=== PATIENT | female | born 1965 | race Caucasian/White ===

== ENCOUNTER 2016-12-05 12:39 | Day surgery (SDC) | payer BC ==
[2016-12-04 18:02] VITALS: BMI 37.1
[2016-12-05] MEDS ORDERED: LIDOCAINE HCL 1%, 10 MG/ML (20ML VIAL) ONE (13:05)
[2016-12-05] MEDS ORDERED: LIDOCAINE HCL 1%, 10 MG/ML (20ML VIAL) IJ ONE ×2 (14:36→14:39)
[2016-12-05] MEDS ORDERED: PROPOFOL 20 ML ONE (14:45)
[2016-12-05] MEDS ORDERED: DEXAMETHASONE SOD PHOSPHATE 4 MG/1 ML VIAL ONE (14:59)
[2016-12-05] MEDS ORDERED: BACITRACIN 30 GM TUBE TOPICAL OINTMENT ONE (15:02)
[2016-12-05] MEDS ORDERED: KETOROLAC TROMETHAMINE 30 MG/1 ML VIAL ONE (15:11)
[2016-12-05] MEDS ORDERED: PATIENT'S OWN MEDICATION (NON-FORMULARY) (Potassium Chloride [Klor-Con] 20 MEQ) PO PRN (15:15)
[2016-12-05] MEDS ORDERED: ONDANSETRON 4 MG/2 ML VIAL IVPUSH PRN (15:23)
[2016-12-05] MEDS ORDERED: ACETAMINOPHEN 1000 MG/100 ML VIAL (NON FORMULARY) IVPB ONE (15:23)
[2016-12-05] MEDS ORDERED: oxyCODONE HCL 5 MG TABLET PO PRN (15:23)
[2016-12-05] MEDS ORDERED: LACTATED RINGERS SOLUTION 1,000 ML IV SCH (15:30)
[2016-12-05 16:51] VITALS: TEMP 97.5
[2016-12-05] MEDS ORDERED: oxyCODONE HCL 5 MG TABLET ONE (17:21)
[2016-12-05 17:30] VITALS: PULSE 100
[2016-12-05 18:23] VITALS: BP 133/78
[2016-12-05] MEDS ORDERED: AMOX TR/POT CLAV 875MG/125MG TABLETS (FP) PO SCH (22:00)
--- NOTE | 2016-12-06 08:53 | OP ---
DATE OF OPERATION: 12/05/2016 PREOPERATIVE DIAGNOSIS: Right breast mass, right breast abscess. POSTOPERATIVE DIAGNOSIS: Right breast mass, right breast abscess. PROCEDURE: Excision of right breast mass with abscess drainage. SURGEON: Miley Lewis MD ANESTHESIA: Local IV sedation. ESTIMATED BLOOD LOSS: Minimal. COMPLICATIONS: None. This is a sterile procedure. INDICATIONS: Patient presented with a palpable mass in the inner right breast that over the past 2 months has gotten infected several times despite Augmentin. She, again, presented with a palpable, tender mass yesterday, and I started her also on Bactrim; however, this is not improved. Therefore, the plan is to do an incision and drainage and excision of this mass. The procedure was discussed and all of the questions answered. PROCEDURE IN DETAIL: The patient was brought to [facility] and taken into the operating room. After IV sedation and IV antibiotics, the right breast was prepped in the usual sterile fashion. The area of the inner right breast was anesthetized with 1% lidocaine without epinephrine. Elliptical incisions were made in the right 3 o'clock location radially up to the base of the nipple, and the entire mass was incised en bloc and sent as a right breast excision. Upon entering this, there was a significant amount of pus that was retrieved, approximately 5 mL. A culture was performed and sent for microbiology. There was still some induration and firmness along the inferior aspect; therefore, I took an additional tissue in the retroareolar 4 o'clock to 5 o'clock location, and this was also sent together with the right breast mass. Hemostasis was assured with electrocautery. Skin was approximated with interrupted 2-0 Vicryl. A India drain was then placed into this cavity and coming out from the medial aspect of the incision. The skin was approximated with interrupted 3-0 Vicryl and then interrupted 4-0 nylon. Bacitracin was applied to the wound. Again, the India was left in place to keep the skin open so as not to gather reinfection. A gauze was applied over the wound to collect any drainage. She tolerated the procedure well and was taken to recovery in good condition. Haim [id number]
[2016-12-06] MEDS ORDERED: MULTIVITAMINS (DAILY MVI) TABLET (FP) PO SCH (10:00)
[2016-12-06] MEDS ORDERED: MULTIVIT WITH IRON MINERALS PO SCH (10:00)
--- NOTE | 2016-12-10 15:20 | PATH ---
Surgical Pathology Report Patient Name: MARS TOMLIN [facility]. Rec. #: [id number] /Age/Gender: 1965 (Age: 51) / F Account: [id number] Location: [facility] SURGICAL Taken: 12/05/2016 Received: 12/08/2016 Reported: 12/10/2016 Physicians: Miley Lewis M.D. Specimen(s) Received RIGHT BREAST MASS Clinical History Right breast mass Final Diagnosis BREAST, RIGHT, MASS, EXCISION: SKIN SHOWING ABSCESS. BENIGN BREAST TISSUE SHOWING ACUTE AND CHRONIC MASTITIS AND PROLIFERATIVE FIBROCYSTIC CHANGES. Electronically Signed Karoline Bailon M.D. Gross Description Received in formalin, labeled "right breast mass," are 2 guaman-yellow, irregular, unoriented portions of fibroadipose tissue measuring 2.8 x 2.4 x 1.5 cm and 4.5 x 3.1 x 3.0 cm. The larger portion displays a 4.0 x 1.3 cm guaman, elliptical, unremarkable portion of skin. The smaller portion is inked green the larger portion is inked red. Sectioning reveals a possible some epidermal lesion in the larger specimen, possibly consistent with an abscess. The remaining breast parenchyma displays foci of firm fibrous tissue.. E Business Specialist sections are submitted in 12 cassettes as follows: [id number] and sequentially submitted smaller portion of tissue; [id number] sequentially submitted larger portion of tissue. Total formalin fixation time: Approximately 72 hours /12/08/201612/08/2016
== END 2016-12-05 18:23 | disposition home or self-care (01) ==
LOC: JOR 12:39 → JASU-SURG 12:39
PROVIDERS: ATTEND Surgery
PROC: 0HBT0ZX Excision of Right Breast, Open Approach, Diagnostic (ICD-10-PCS; principal; 2016-12-05 14:00)
DX: N61.1 Abscess of the breast and nipple (principal); D24.1 Benign neoplasm of right breast
CPT/HCPCS: 87070; 87205; 88307-TC; 94760

== ENCOUNTER 2017-02-28 12:39 | Inpatient (IN) | payer BC ==
--- NOTE | 2017-02-28 12:55 | PDOC ---
[id number] No Limitations - History of Present Illness Initial Comments: 02/28/17 12:56 The patient is a 51-year-old woman, accompanied by her , with a significant past medical history of anemia who was advised to present to the emergency department by her PMD, Dr. Crystal Meyer for further evaluation of generalized weakness. Patient states that she underwent outpatient labs, approximately 2 weeks ago, which were indicative for anemia. She was informed that her hemoglobin was low and was advised to present to the hospital for a blood transfusion. She admits that she did not want a blood transfusion and wanted to be on iron supplements. She states that for the past 2 weeks, her weakness have progressively worsened to the point where she is unable to sleep. She also reports symptoms of urinary frequency for the past 2 weeks. She had two shots of Tequila this morning. She called Dr. Meyer this morning, who advised her to present to the ER. No fever, chills. No chest pain, lightheadedness, dizziness, headaches, palpitations. No cough, shortness of breath. No abdominal pain, nausea, vomiting, diarrhea, constipation No dysuria, flank pain, urinary hesitancy, vaginal discharge. Allergies: Bupropion Past Surgical History: Cholecystectomy. Gastric bypass. Lumpectomy (12/03/2016; due to infection; no malignancy, as per patient) Social History: Current everyday cigarette smoker (approximately 1 pack/day). Everyday ETOH use (Drink of choice is Tequila; patient states she has not drank in one month; admits to drinking two shots of Tequila this morning). No recreational drug use. Primary Care Physician: Dr. Crystal Meyer <Jennifer Conteh - Last Filed: 02/28/17 14:43> <Laverne Nicholas - Last Filed: 02/28/17 16:18> - General Chief Complaint: Weakness Stated Complaint: PCP SENT/WEAKENESS Time Seen by Provider: 02/28/17 12:55 Past History <Jennifer Conteh - Last Filed: 02/28/17 14:43> - Past Medical History Anemia: (LOW BLOOD IRON.) - Surgical History Abdominal Surgery: Yes (GASTRIC BYPASS) Cholecystectomy: Yes - Psycho/Social/Smoking Cessation Hx Anxiety: No Suicidal Ideation: No Smoking History: Current every day smoker Have you smoked in the past 12 months: Yes Number of Cigarettes Smoked Daily: 20 Information on smoking cessation initiated: No 'Breaking Loose' booklet given: 12/05/16 Hx Alcohol Use: Yes (TEQUILA) Drug/Substance Use Hx: No Substance Use Type: Alcohol <Laverne Nicholas - Last Filed: 02/28/17 16:18> - Past Medical History Allergies/Adverse Reactions: Allergies Allergy/AdvReac Type Severity Reaction Status Date / Time bupropion HCl Allergy Intermediate Rash Verified 02/28/17 12:45 [From Wellbutrin] Home Medications: Ambulatory Orders Multivit with Iron-Minerals [Compete] 1 each PO DAILY 12/04/16 Pantoprazole Sodium 40 mg PO DAILY 02/28/17 Trazodone HCl [Desyrel -] 150 mg PO HS 02/28/17 Zolpidem Tartrate [Ambien] 10 mg PO HS 02/28/17 Review of Systems - Review of Systems Able to Perform ROS?: Yes Comments:: 02/28/17 12:56 Constitutional - +Weakness. Pt denies Fever, Chills, HEENT: denies vision changes, sore throat Respiratory: Denies cough, sob, hemoptysis Cardiac: denies chest pain, palpitations, light headedness, leg swelling Abd/GI: denies abd pain, nausea, vomiting, blood per rectum, melena, diarrhea : +Urinary frequency. denies dysuria, discharge Musculoskeletal - denies back pain, joint swelling skin - denies bruising, erythema, rash neurological: +Weakness. Denies headache, numbness, focal weakness, tingling, ataxia. hematologic: +History of anemia. denies easy bruising, easy bleeding <Jennifer Conteh - Last Filed: 02/28/17 14:43> *Physical Exam - Vital Signs Last Vital Signs Temp Pulse Resp BP Pulse Ox 98.3 F 108 H 18 106/63 98 02/28/17 12:42 02/28/17 12:42 02/28/17 12:42 02/28/17 12:42 02/28/17 12:42 - Physical Exam Comments: 02/28/17 12:56 GENERAL: The patient is awake, alert, and fully oriented, Nontoxic - in no acute distress. HEAD: Normocephalic, atraumatic. EYES: extraocular movements intact, sclera anicteric, conjunctiva clear. ENT: Normal voice, moist mucous membranes. NECK: Normal range of motion, supple without lymphadenopathy, JVD, or masses. LUNGS: Breath sounds equal, clear to auscultation bilaterally. No wheezes, no crackles, no rales. HEART: Regular rate and rhythm, normal S1 and S2 without murmur, rub or gallop. ABDOMEN: Soft, nontender, normoactive bowel sounds. No guarding, no rebound. No masses. EXTREMITIES: Normal range of motion, no edema. No clubbing or cyanosis. No cords , erythema, or tenderness. NEUROLOGICAL: Fully Oriented, Alert, Normal Mood/Affect, Motor Strength 5/5. No facial assymetry, Normal speech SKIN: Warm, Dry, normal turgor, no rashes or lesions noted. <Jennifer Conteh - Last Filed: 02/28/17 14:43> - Vital Signs Last Vital Signs Temp Pulse Resp BP Pulse Ox 98.3 F 108 H 18 106/63 98 02/28/17 12:42 02/28/17 12:42 02/28/17 12:42 02/28/17 12:42 02/28/17 12:42 <Laverne Nicholas - Last Filed: 02/28/17 16:18> Heart Score/ECG Review #1 02/28/17 14:43 Reviewed and interpreted by Dr. Laverne Nicholas IMPRESSION: Sinus tachycardia with a rate of 105 bpm. Normal axis. No acute ST abnormalities. No prior EKG for comparison. <Jennifer Conteh - Last Filed: 02/28/17 14:43> ED Treatment Course - LABORATORY CBC & Chemistry Diagram: 02/28/17 13:30 02/28/17 13:30 <Jennifer Conteh - Last Filed: 02/28/17 14:43> - LABORATORY CBC & Chemistry Diagram: 02/28/17 13:30 02/28/17 13:30 <Laverne Nicholas - Last Filed: 02/28/17 16:18> Medical Decision Making - Medical Decision Making 02/28/17 14:[address] Crystal Meyer. <Jennifer Conteh - Last Filed: 02/28/17 14:43> - Medical Decision Making 02/28/17 13:41 I, Dr. Laverne Nicholas, attest that the scribes documentation that appears above has been prepared under my direction and personally reviewed by me. I confirmed that the note above accurately reflects all work, treatment, procedures, and medical decision-making performed by me. Pt hgb today was 6.4, case discussed with Dr. Cotter who agrees with admission for blood transfusion but requestes ct Of abdomen with contrast to evaluate the anemia. Pt agrees to admission , two units of blood ordered, and admission enetered in the computer. 02/28/17 14:44 02/28/17 16:11 <Laverne Nicholas - Last Filed: 02/28/17 16:18> *DC/Admit/Observation/Transfer - Attestations Scribe Attestion: 02/28/17 12:56 Documentation prepared by Jennifer Conteh, acting as medical associate for Laverne Nicholas DO. <Jennifer Conteh - Last Filed: 02/28/17 14:43> - Discharge Dispostion Admit: Yes <Laverne Nicholas - Last Filed: 02/28/17 16:18> Diagnosis at time of Disposition: Anemia - Discharge Dispostion Condition at time of disposition: Stable
[2017-02-28 13:35] LABS: MCH 28.3 pg (25.7-33.7); MCHC 31.5 g/dl (32.0-36.0); MEAN PLT VOLUME 7.5 fl (7.5-11.1); PLATELET COUNT 412 K/MM3 (134-434); RDW 24.7 % (11.6-15.6); WHITE BLOOD COUNT 7.7 K/mm3 (4.0-10.0)
[2017-02-28 13:59] LABS: ALBUMIN 2.2 g/dl (3.4-5.0); ANION GAP 9 (8-16); BILIRUBIN,TOTAL 0.3 mg/dL (0.2-1.0); CALCIUM 7.9 mg/dL (8.5-10.1); CO2 23 mmol/L (21-32); COCKROFT - GAULT 204.935; CREATININE 0.5 mg/dL (0.55-1.02); GLUCOSE,RANDOM 103 mg/dL (74-106); SGOT/AST 90 U/L (15-37); SGPT/ALT 47 U/L (12-78)
[2017-02-28 14:00] LABS: ALK PHOS 216 U/L (45-117); TOT PROT 5.3 g/dl (6.4-8.2)
[2017-02-28 14:05] LABS: ANISOCYTOSIS 3+; HYPOCHROMIA 2+; PLATELET ESTIMATE ADEQUATE (NORMAL); POLYCHROMASIA 1+
[2017-02-28 14:06] LABS: MICROCYTOSIS 1+
[2017-02-28 14:47] LABS: URINE APPEARANCE CLEAR; URINE BILIRUBIN NEGATIVE (NEGATIVE); URINE COLOR STRAW; URINE GLUCOSE (UA) NEGATIVE (NEGATIVE); URINE KETONE NEGATIVE (NEGATIVE); URINE LEUK ESTERASE NEGATIVE (NEGATIVE); URINE NITRITE NEGATIVE (NEGATIVE); URINE PROTEIN NEGATIVE (NEGATIVE); URINE UROBILINOGEN NEGATIVE E.U./dl (0.2-1.0)
[2017-02-28 14:53] LABS: URINE BLOOD 1+ (NEGATIVE)
[2017-02-28 14:54] LABS: URINE WBC <1 /hpf (3-5)
--- NOTE | 2017-02-28 16:42 | HP ---
Admitting History and Physical - Primary Care Physician PCP: Crystal Meyer - Admission Chief Complaint: WEAKNESS/DIZZINESS, ACUTE ANEMIA History of Present Illness: The patient is a 51-year-old woman, accompanied by her , with a significant past medical history of anemia who was advised to present to the emergency department by her PMD, Dr. Crystal Meyer for further evaluation of generalized weakness. Patient states that she underwent outpatient labs, approximately 2 weeks ago, which were indicative for anemia. She was informed that her hemoglobin was low and was advised to present to the hospital for a blood transfusion. She admits that she did not want a blood transfusion and wanted to be on iron supplements. She states that for the past 2 weeks, her weakness have progressively worsened to the point where she is unable to sleep. She also reports symptoms of urinary frequency for the past 2 weeks. She had two shots of Tequila this morning. She called Dr. Meyer this morning, who advised her to present to the ER. No fever, chills. No chest pain, lightheadedness, dizziness, headaches, palpitations. No cough, shortness of breath. No abdominal pain, nausea, vomiting, diarrhea, constipation No dysuria, flank pain, urinary hesitancy, vaginal discharge. History Source: Patient - Past Surgical History Past Surgical History: Yes: Bariatric Surgery - Smoking History Smoking history: Current every day smoker Have you smoked in the past 12 months: Yes Aproximately how many cigarettes per day: 20 - Alcohol/Substance Use Hx Alcohol Use: Yes (TEQUILA) Home Medications - Allergies Allergies/Adverse Reactions: Allergies Allergy/AdvReac Type Severity Reaction Status Date / Time bupropion HCl Allergy Intermediate Rash Verified 02/28/17 12:45 [From Wellbutrin] - Home Medications Home Medications: Ambulatory Orders Multivit with Iron-Minerals [Compete] 1 each PO DAILY 12/04/16 Pantoprazole Sodium 40 mg PO DAILY 02/28/17 Trazodone HCl [Desyrel -] 150 mg PO HS 02/28/17 Zolpidem Tartrate [Ambien] 10 mg PO HS 02/28/17 Review of Systems - Review of Systems Constitutional: reports: Lethargy, Weakness Eyes: reports: No Symptoms HENT: reports: No Symptoms Neck: reports: No Symptoms Cardiovascular: reports: Shortness of Breath Respiratory: reports: Orthopnea Gastrointestinal: reports: No Symptoms Genitourinary: reports: No Symptoms Breasts: reports: No Symptoms Reported Musculoskeletal: reports: Muscle Weakness Integumentary: reports: Rash, Other Neurological: reports: Dizziness, Other Endocrine: reports: No Symptoms Hematology/Lymphatic: reports: No Symptoms Psychiatric: reports: No Symptoms Physical Examination Vital Signs: Vital Signs Temperature 98.3 F 02/28/17 12:42 Pulse Rate 100 H 02/28/17 15:59 Respiratory Rate 20 02/28/17 15:59 Blood Pressure 114/52 02/28/17 15:59 O2 Sat by Pulse Oximetry (%) 97 02/28/17 15:59 Constitutional: Yes: Moderate Distress Eyes: Yes: WNL HENT: Yes: WNL Neck: Yes: WNL Cardiovascular: Yes: WNL Respiratory: Yes: WNL Gastrointestinal: Yes: WNL Renal/: Yes: WNL Musculoskeletal: Yes: Muscle Weakness Extremities: Yes: WNL Edema: Yes Edema: LLE: Trace, RLE: Trace Peripheral Pulses WNL: Yes Integumentary: Yes: Rash Wound/Incision: Yes: Open to air Neurological: Yes: WNL ...Motor Strength: WNL Psychiatric: Yes: WNL Problem List - Problems (1) Anemia Assessment/Plan: SEVERE MAL-ABSORPTION POST GASTRIC BY-PASS SURGERY Code(s): D64.9 - ANEMIA, UNSPECIFIED Qualifiers: Anemia type: other cause (2) Fatigue Code(s): R53.83 - OTHER FATIGUE (3) Weakness generalized Code(s): R53.1 - WEAKNESS (4) Bariatric surgery status Assessment/Plan: S/P [id number] SURGERY FOR WEIGHT LOSS IN PAST NOW WITH MAL-ABSORPTION OF VITAMINS AND MINERALS Code(s): Z98.84 - BARIATRIC SURGERY STATUS Assessment/Plan TRANSFUSE PRBS STAT HEMATOLOGY EVAL GI EVAL CT SCAN R/O ACUTE GI ANOMALIE OBSERVATION STATUS
[2017-02-28] MEDS ORDERED: ACETAMINOPHEN 325 MG TABLET (FP) PO PRN (17:07)
[2017-02-28] MEDS: PANTOPRAZOLE 40 MG TABLET (FP) PO SCH (17:59)
[2017-02-28] MEDS: traZODone HCL 50 MG TABLET (FP) PO SCH ×2 (20:30→21:23)
[2017-02-28] MEDS: ZOLPIDEM TARTRATE 5 MG TABLET PO PRN (21:21)
[2017-03-01 08:52] LABS: MCHC 31.7 g/dl (32.0-36.0); MEAN CELL VOLUME 88.5 fl (80-96); MEAN PLT VOLUME 7.9 fl (7.5-11.1); PLATELET COUNT 368 K/MM3 (134-434); RDW 21.9 % (11.6-15.6); WHITE BLOOD COUNT 8.5 K/mm3 (4.0-10.0)
[2017-03-01 09:49] LABS: ALBUMIN 2.4 g/dl (3.4-5.0); ANION GAP 9 (8-16); CO2 22 mmol/L (21-32); COCKROFT - GAULT 226.4145; CREATININE 0.5 mg/dL (0.55-1.02); GLUCOSE,RANDOM 86 mg/dL (74-106); SGOT/AST 78 U/L (15-37); SGPT/ALT 42 U/L (12-78)
[2017-03-01 09:51] LABS: ALK PHOS 223 U/L (45-117); BILIRUBIN,TOTAL 0.7 mg/dL (0.2-1.0); TOT PROT 5.7 g/dl (6.4-8.2)
[2017-03-01] MEDS: PANTOPRAZOLE 40 MG TABLET (FP) PO SCH (10:12)
[2017-03-01] MEDS: NICOTINE 21 MG/24 HOURS TOPICAL PATCH TD SCH (10:12)
--- NOTE | 2017-03-01 13:25 | CON.GI ---
Consult Consult Specialty:: Gastroenterology ( covering Dr Vinson) Referred by:: Dr Meyer Reason for Consultation:: anemia - History of Present Illness Chief Complaint: Weakness, decreased exercise tolerance History of Present Illness: 51W is admitted for blood transfusion for Hb 6.5. She denies any overt GI bleeding. She reports having a chronic anemia. She is s/p gastric bypass bariatric surgery at [facility] 8 years ago leading to a 100lbs weight loss. She has since regained 70lbs. She had an EGD at [facility] last year which she reports as being unrevealing. She had a colonoscopy in [place] about 8 years ago which she reports as normal. She did have an I&D of a large right breast abscess several weeks ago but had no blood testing at that time. She did have a large breast hematoma following that surgery. She denies acid reflux, dysphagia , abdominal pain or hematochezia or narrowed stool caliber. Her stool was guaiac negative in the ER. She denies taking NSAIDs. She has an upper extremity pruritus and denies a generalized form. She denies any h/o liver disease but drinks tequila and beer on weekends. Denies IVDA and previous transfusions. - History Source History Provided By: Patient Limitations to Obtaining History: No Limitations - Past Medical History Pulmonary: Yes: COPD (chronic smoker's cough and exertional dyspnea) Gastrointestinal: Yes: Other (Gastric bypass 8 years ago at [facility]) Hepatobiliary: Yes: Cholelithiasis (s/p lap choly), Other (has elevated transaminases) ...: No Heme/Onc: Yes: Anemia Additional Medical History: upper extremity pruritic eczema - Past Surgical History Past Surgical History: Yes: Bariatric Surgery (gastric bypass 8 years ago with 100 lbs wt loss, had regained 70lbs), Breast Biopsy (breast abscess drainage ), Cholecystectomy (laparoscopic), Colonoscopy, Hernia Repair (incisional hernia repair epigastrium), Tubal Ligation, Upper Endoscopy - Alcohol/Substance Use Hx Alcohol Use: Yes (TEQUILA) History of Substance Use: reports: None - Smoking History Smoking history: Current every day smoker Have you smoked in the past 12 months: Yes Aproximately how many cigarettes per day: 20 - Social History Usual Living Arrangement: With Spouse ADL: Independent 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 Place of : [facility] History of Recent Travel: Yes ( relocated from [place]) Home Medications - Allergies Allergies/Adverse Reactions: Allergies Allergy/AdvReac Type Severity Reaction Status Date / Time bupropion HCl Allergy Intermediate Rash Verified 02/28/17 12:45 [From Wellbutrin] - Home Medications Home Medications: Ambulatory Orders Multivit with Iron-Minerals [Compete] 1 each PO DAILY 12/04/16 Pantoprazole Sodium 40 mg PO DAILY 02/28/17 Trazodone HCl [Desyrel -] 150 mg PO HS 02/28/17 Zolpidem Tartrate [Ambien] 10 mg PO HS 02/28/17 Family Disease History - Family Disease History Family Disease History: CA: Mother (breast cancer survivor), Other: Father ( murdered age 31), Brother (one suicide, another in MVA) Review of Systems - Review of Systems Constitutional: reports: Malaise, Weakness, Other (chronic insomnia ? sleep apnea) Eyes: reports: No Symptoms HENT: reports: No Symptoms Neck: reports: No Symptoms Cardiovascular: reports: Shortness of Breath Respiratory: reports: Exercise Intolerance Gastrointestinal: reports: No Symptoms Breasts: reports: Other (recent abscess drainage) Musculoskeletal: reports: Extremity Pain Integumentary: reports: Pruritis (chromic upper extremity pruitic rash), Other Neurological: reports: No Symptoms Psychiatric: reports: Altered Sleep Pattern (insomnia) Physical Exam-GI Vital Signs: Vital Signs Temperature 98.8 F 03/01/17 05:00 Pulse Rate 100 H 03/01/17 05:00 Respiratory Rate 20 03/01/17 05:00 Blood Pressure 150/90 03/01/17 05:00 O2 Sat by Pulse Oximetry (%) 97 03/01/17 00:36 Current Medications Generic Name Dose Route Start Last Admin Trade Name Freq PRN Reason Stop Dose Admin Acetaminophen 650 mg 02/28/17 17:07 Tylenol - PO Q6H PRN FEVER OR PAIN Nicotine 21 mg 03/01/17 10:00 03/01/17 10:12 Nicoderm Patch - TD 21 mg DAILY DURGA Administration Pantoprazole Sodium 40 mg 02/28/17 18:00 03/01/17 10:12 Protonix - PO 40 mg DAILY DURGA Administration Trazodone HCl 150 mg 02/28/17 22:00 02/28/17 21:23 Desyrel - PO Not Given HS DURGA Zolpidem Tartrate 10 mg 02/28/17 17:07 02/28/17 21:21 Ambien - PO 10 mg HS PRN Administration INSOMNIA CBC,CMP WBC 8.5 K/mm3 (4.0-10.0) 03/01/17 07:45 RBC 3.19 M/mm3 (3.60-5.2) L D 03/01/17 07:45 Hgb 8.9 GM/dL (10.7-15.3) L D 03/01/17 07:45 Hct 28.2 % (32.4-45.2) L D 03/01/17 07:45 MCV 88.5 fl (80-96) 03/01/17 07:45 MCHC 31.7 g/dl (32.0-36.0) L 03/01/17 07:45 RDW 21.9 % (11.6-15.6) H D 03/01/17 07:45 Plt Count 368 K/MM3 (134-434) 03/01/17 07:45 MPV 7.9 fl (7.5-11.1) 03/01/17 07:45 Neutrophils % 55.0 % (42.8-82.8) 02/28/17 13:30 Lymphocytes % 34.0 % (8-40) 02/28/17 13:30 Monocytes % 10.0 % (3.8-10.2) 02/28/17 13:30 Band Neutrophils 1.0 % (0-10) 02/28/17 13:30 Platelet Estimate Adequate (NORMAL) 02/28/17 13:30 Platelet Comment No clumping noted 02/28/17 13:30 Polychromasia 1+ 02/28/17 13:30 Hypochromic-Microcytic 2+ 02/28/17 13:30 Anisocytosis 3+ 02/28/17 13:30 Microcytosis 1+ 02/28/17 13:30 Sodium 141 mmol/L (136-145) 03/01/17 07:45 Potassium 4.4 mmol/L (3.5-5.1) 03/01/17 07:45 Chloride 110 mmol/L (98-107) H 03/01/17 07:45 Carbon Dioxide 22 mmol/L (21-32) 03/01/17 07:45 Anion Gap 9 (8-16) 03/01/17 07:45 BUN 4 mg/dL (7-18) L 03/01/17 07:45 Creatinine 0.5 mg/dL (0.55-1.02) L 03/01/17 07:45 Creat Clearance w eGFR > 60 (>60) 03/01/17 07:45 Random Glucose 86 mg/dL (74-106) 03/01/17 07:45 Calcium 8.0 mg/dL (8.5-10.1) L 03/01/17 07:45 Total Bilirubin 0.7 mg/dL (0.2-1.0) D 03/01/17 07:45 AST 78 U/L (15-37) H 03/01/17 07:45 ALT 42 U/L (12-78) 03/01/17 07:45 Alkaline Phosphatase 223 U/L (45-117) H 03/01/17 07:45 Total Protein 5.7 g/dl (6.4-8.2) L 03/01/17 07:45 Albumin 2.4 g/dl (3.4-5.0) L 03/01/17 07:45 Vitamin B12 648 pg/ml (180-914) 03/01/17 07:45 Serum Folate 15 ng/ml (3.1-17.5) 03/01/17 07:45 Constitutional: Yes: Anxious Eyes: Yes: Conjunctiva Clear HENT: Yes: Normocephalic Neck: Yes: Supple Cardiovascular: Yes: Regular Rate and Rhythm Respiratory: Yes: Rhonchi (fine and scattered) Gastrointestinal Inspection: Yes: Distention (obesity), Scars (healed laparoscopic incisions) ...Auscultate: Yes: Normoactive Bowel Sounds ...Palpate: Yes: Soft, Other (nontender) ...Rectal Exam: Yes: Deferred (patient declines citing this was done in the ER) Breast(s): Yes: Right (incision healed, no drainage or bleeding, no residual hematoma) Extremities: Yes: Other (upper arm macerated lesions) Edema: No Labs: CBC, BMP 03/01/17 07:45 03/01/17 07:45 Imaging - Results Cat Scan: Image Reviewed (liver appears fatty, no collections or ascites, await official reading) Problem List - Problems (1) Hepatitis Code(s): K75.9 - INFLAMMATORY LIVER DISEASE, UNSPECIFIED (2) Obesity Code(s): E66.9 - OBESITY, UNSPECIFIED Qualifiers: Obesity type: drug-induced Obesity severity: morbid Qualified Code(s): 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 Given her smoking and alcohol usage I have advised an EGD to exclude an anastomotic ulcer and portal gastropathy. I have discussed EGD in detail and informed Gina of the potential for such complications as perforation and hemorrhage. She has granted an informed consent. Will keep NPO on the chance that Dr Vinson may be able to do it tomorrow. I have explained that her LFTs are elevated in a pattern more suggestive of alcohol injury than DHILLON but that I suspect both are in play. I have advised abstension from alcohol and a better diet and aerobic exercise to induce weight loss. Will order Fibrosure. Will need an mitochondrial antibody as an outpatient as this is not accessible today. Her pruritis could reflect PBC.
[2017-03-01] MEDS ORDERED: OXYCODONE/APAP 5/325MG COMBO TABLET PO PRN (18:22)
--- NOTE | 2017-03-01 18:28 | PN ---
Progress Note, Physician History of Present Illness: no complaints - Current Medication List Current Medications: Active Medications Acetaminophen (Tylenol -) 650 mg PO Q6H PRN PRN Reason: FEVER OR PAIN Acetaminophen (Tylenol -) 325 mg PO Q4H PRN PRN Reason: PAIN LEVEL 6-10 Stop: 03/04/17 18:23 Nicotine (Nicoderm Patch -) 21 mg TD DAILY [facility] Last Admin: 03/01/17 10:12 Dose: 21 mg Oxycodone HCl (Roxicodone -) 5 mg PO Q4H PRN PRN Reason: PAIN LEVEL 6-10 Pantoprazole Sodium (Protonix -) 40 mg PO DAILY [facility] Last Admin: 03/01/17 10:12 Dose: 40 mg Trazodone HCl (Desyrel -) 150 mg PO HS [facility] Last Admin: 02/28/17 21:23 Dose: Not Given Zolpidem Tartrate (Ambien -) 10 mg PO HS PRN PRN Reason: INSOMNIA Last Admin: 02/28/17 21:21 Dose: 10 mg - Objective Vital Signs: Vital Signs Temperature 98.1 F 03/01/17 14:02 Pulse Rate 100 H 03/01/17 14:02 Respiratory Rate 20 03/01/17 08:00 Blood Pressure 125/61 03/01/17 14:02 O2 Sat by Pulse Oximetry (%) 97 03/01/17 08:00 Constitutional: Yes: No Distress HENT: Yes: Atraumatic Neck: Yes: Supple Cardiovascular: Yes: Regular Rate and Rhythm Respiratory: Yes: CTA Bilaterally Gastrointestinal: Yes: Normal Bowel Sounds Breast(s): Yes: Other (r breast healed) Extremities: Yes: WNL Neurological: Yes: Alert, Oriented Labs: CBC, BMP 03/01/17 07:45 03/01/17 07:45 Problem List - Problems (1) Anemia Assessment/Plan: s/p 2 u prbc h/h improved gi did evaluation check stool for occult blood Code(s): D64.9 - ANEMIA, UNSPECIFIED Qualifiers: Anemia type: other cause (2) Bariatric surgery status Code(s): Z98.84 - BARIATRIC SURGERY STATUS (3) Breast abscess of female Code(s): N61.1 - ABSCESS OF THE BREAST AND NIPPLE (4) Weakness generalized Code(s): R53.1 - WEAKNESS
[2017-03-01] MEDS: ACETAMINOPHEN 325 MG TABLET (FP) PO PRN (18:43)
[2017-03-01] MEDS: oxyCODONE HCL 5 MG TABLET PO PRN ×2 (18:44→22:36)
[2017-03-01] MEDS: ZOLPIDEM TARTRATE 5 MG TABLET PO PRN (21:58)
[2017-03-01] MEDS: traZODone HCL 50 MG TABLET (FP) PO SCH (21:58)
--- NOTE | 2017-03-02 00:10 | EKG ---
Test Reason : Blood Pressure : / mmHG Vent. Rate : 105 BPM Atrial Rate : 105 BPM P-R Int : 144 ms QRS Dur : 074 ms QT Int : 356 ms P-R-T Axes : 038 032 041 degrees QTc Int : 470 ms SINUS TACHYCARDIA LOW VOLTAGE QRS BORDERLINE ECG NO PREVIOUS ECGS AVAILABLE Confirmed by MERI JOSEPH MD ([id number]) on 03/02/2017 12:09:48 AM Referred By: Confirmed By:MERI JOSEPH MD
[2017-03-02 09:22] LABS: ALBUMIN 2.5 g/dl (3.4-5.0); BILIRUBIN,DIRECT 0.4 mg/dL (0.0-0.2)
[2017-03-02 09:25] LABS: BILIRUBIN,TOTAL 0.7 mg/dL (0.2-1.0); FERRITIN 19.996 ng/ml (6.9-282.5); TOT PROT 5.9 g/dl (6.4-8.2)
[2017-03-02] MEDS: NICOTINE 21 MG/24 HOURS TOPICAL PATCH TD SCH (10:06)
[2017-03-02] MEDS: PANTOPRAZOLE 40 MG TABLET (FP) PO SCH (10:11)
[2017-03-02] MEDS ORDERED: LORAZEPAM CARPU-JECT 2 MG/ML DISP.SYRIN IM ONE (10:45)
[2017-03-02] MEDS ORDERED: PROPOFOL 20 ML ONE ×2 (11:08)
[2017-03-02] MEDS ORDERED: LIDOCAINE HCL 2% (20ML MULTI-DOSE VIAL) NR ONE (11:08)
[2017-03-02] MEDS: oxyCODONE HCL 5 MG TABLET PO PRN ×2 (14:26→18:43)
[2017-03-02] MEDS: ACETAMINOPHEN 325 MG TABLET (FP) PO PRN ×2 (14:27→18:44)
--- NOTE | 2017-03-02 19:11 | PN ---
Progress Note, Physician Chief Complaint: awake s/p egd results reviewed with GI - Current Medication List Current Medications: Active Medications Acetaminophen (Tylenol -) 650 mg PO Q6H PRN PRN Reason: FEVER OR PAIN Acetaminophen (Tylenol -) 325 mg PO Q4H PRN PRN Reason: PAIN LEVEL 6-10 Stop: 03/04/17 18:23 Last Admin: 03/02/17 18:44 Dose: 325 mg Nicotine (Nicoderm Patch -) 21 mg TD DAILY [facility] Last Admin: 03/02/17 10:06 Dose: 21 mg Oxycodone HCl (Roxicodone -) 5 mg PO Q4H PRN PRN Reason: PAIN LEVEL 6-10 Last Admin: 03/02/17 18:43 Dose: 5 mg Pantoprazole Sodium (Protonix -) 40 mg PO DAILY [facility] Last Admin: 03/02/17 10:11 Dose: Not Given Trazodone HCl (Desyrel -) 150 mg PO HS [facility] Last Admin: 03/01/17 21:58 Dose: 150 mg Zolpidem Tartrate (Ambien -) 10 mg PO HS PRN PRN Reason: INSOMNIA Last Admin: 03/01/17 21:58 Dose: 10 mg - Objective Vital Signs: Vital Signs Temperature 98.2 F 03/02/17 13:42 Pulse Rate 97 H 03/02/17 13:42 Respiratory Rate 22 03/02/17 13:42 Blood Pressure 144/88 03/02/17 12:35 O2 Sat by Pulse Oximetry (%) 97 03/02/17 13:00 Constitutional: Yes: Mild Distress Eyes: Yes: WNL HENT: Yes: WNL Neck: Yes: WNL Cardiovascular: Yes: WNL Respiratory: Yes: WNL Gastrointestinal: Yes: WNL Genitourinary: Yes: WNL Musculoskeletal: Yes: WNL Extremities: Yes: WNL Edema: No Peripheral Pulses WNL: Yes Integumentary: Yes: WNL Wound/Incision: Yes: Clean/Dry Neurological: Yes: WNL ...Motor Strength: WNL Psychiatric: Yes: WNL Problem List - Problems (1) Anemia Code(s): D64.9 - ANEMIA, UNSPECIFIED Qualifiers: Anemia type: other cause (2) Fatigue Code(s): R53.83 - OTHER FATIGUE (3) Weakness generalized Code(s): R53.1 - WEAKNESS (4) Bariatric surgery status Code(s): Z98.84 - BARIATRIC SURGERY STATUS (5) Acute gastric ulcer with bleeding Code(s): K25.0 - ACUTE GASTRIC ULCER WITH HEMORRHAGE Assessment/Plan egd reviewed multiple ulcers and avm corterized by dr carver check labs in am f/u biopsy outpatient repeat egd 1 month colonoscopy outpatient abstain from etoh use iron supp 325 bid
[2017-03-02] MEDS: ZOLPIDEM TARTRATE 5 MG TABLET PO PRN (21:52)
[2017-03-02] MEDS: traZODone HCL 50 MG TABLET (FP) PO SCH (21:52)
[2017-03-03] MEDS: ACETAMINOPHEN 325 MG TABLET (FP) PO PRN ×5 (03:05→19:37)
[2017-03-03] MEDS: oxyCODONE HCL 5 MG TABLET PO PRN ×5 (03:06→19:37)
[2017-03-03 07:31] LABS: MCH 28.5 pg (25.7-33.7); MCHC 31.9 g/dl (32.0-36.0); MEAN CELL VOLUME 89.4 fl (80-96); MEAN PLT VOLUME 8.1 fl (7.5-11.1); PLATELET COUNT 261 K/MM3 (134-434); RDW 21.8 % (11.6-15.6); WHITE BLOOD COUNT 7.3 K/mm3 (4.0-10.0)
[2017-03-03 08:08] LABS: ALBUMIN 2.2 g/dl (3.4-5.0); ALK PHOS 180 U/L (45-117); ANION GAP 9 (8-16); BILIRUBIN,TOTAL 0.4 mg/dL (0.2-1.0); CALCIUM 8.1 mg/dL (8.5-10.1); CO2 24 mmol/L (21-32); COCKROFT - GAULT 226.4145; CREATININE 0.5 mg/dL (0.55-1.02); GLUCOSE,RANDOM 94 mg/dL (74-106); SGOT/AST 39 U/L (15-37); SGPT/ALT 27 U/L (12-78); TOT PROT 5.1 g/dl (6.4-8.2)
[2017-03-03] MEDS: NICOTINE 21 MG/24 HOURS TOPICAL PATCH TD SCH (09:34)
[2017-03-03] MEDS: PANTOPRAZOLE 40 MG TABLET (FP) PO SCH (09:34)
--- NOTE | 2017-03-03 12:12 | PATH ---
Surgical Pathology Report Patient Name: MARS TOMLIN Med. Rec. #: [id number] /Age/Gender: 1965 (Age: 51) / F Account: [id number] Location: [address] [place] [address]/[facility] Taken: 03/02/2017 Received: 03/02/2017 Reported: 03/03/2017 Physicians: Haim Chávez M.D. 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 IMMUNOSTAIN FOR H. PYLORI IS NEGATIVE. Electronically Signed Balta Velásquez M.D. Gross Description Received in formalin, labeled "biopsy gastric pouch" is a guaman, irregular portion of soft tissue measuring 0.4 cm. in greatest dimension. The specimen is submitted in toto in one cassette. /03/02/201703/02/2017
--- NOTE | 2017-03-03 18:31 | DS ---
Physical Examination Vital Signs: Vital Signs Temperature 98.3 F 03/03/17 13:56 Pulse Rate 96 H 03/03/17 13:56 Respiratory Rate 22 03/03/17 13:56 Blood Pressure 121/71 03/03/17 08:00 O2 Sat by Pulse Oximetry (%) 97 03/03/17 08:00 Findings/Remarks: IMPROVING, STILL TIRED, CBC SLIGHTLY LOWER H/H Constitutional: Yes: Mild Distress Eyes: Yes: WNL HENT: Yes: WNL Neck: Yes: WNL Cardiovascular: Yes: WNL Respiratory: Yes: WNL Gastrointestinal: Yes: WNL Renal/: Yes: WNL Musculoskeletal: Yes: WNL Extremities: Yes: WNL Edema: Yes Edema: LLE: Trace, RLE: Trace Peripheral Pulses WNL: Yes Integumentary: Yes: WNL Wound/Incision: Yes: Clean/Dry Neurological: Yes: WNL ...Motor Strength: WNL Psychiatric: Yes: WNL Labs: CBC, BMP 03/03/17 06:20 03/03/17 06:20 Discharge Summary Reason For Visit: ANEMIA Current Active Problems Acute gastric ulcer with bleeding (Acute) Anemia (Acute) Bariatric surgery status (Acute) Breast abscess of female (Acute) Fatigue (Acute) Hepatitis (Acute) Obesity (Acute) Weakness generalized (Acute) Procedures: Principal: EGD Other Procedures: CT SCAN ABD Hospital Course: ADMITTED FOR ACUTE BLOOD LOSS ANEMIA, EGD PERFORMED WITH BIOPSY DONE. MULTIPLE AVM THAT NEEDED TO BE CORTERIZED. TRANSFUSION PRBC DONE, F/U OUTPATIENT WITH GI AND DR MEYER IN 1 WEEK. Condition: Stable - Instructions Diet, Activity, Other Instructions: LOW FAT/SODIUM/ NO ETOH!! Referrals: Crystal Meyer MD [Primary Care Provider] - Disposition: HOME - Home Medications Comprehensive Discharge Medication List: Ambulatory Orders Multivit with Iron-Minerals [Compete] 1 each PO DAILY 12/04/16 Pantoprazole Sodium 40 mg PO DAILY 02/28/17 Trazodone HCl [Desyrel -] 150 mg PO HS 02/28/17 Zolpidem Tartrate [Ambien] 10 mg PO HS 02/28/17
[2017-03-03] MEDS: ZOLPIDEM TARTRATE 5 MG TABLET PO PRN (21:38)
[2017-03-03] MEDS: traZODone HCL 50 MG TABLET (FP) PO SCH (21:38)
[2017-03-04] MEDS: oxyCODONE HCL 5 MG TABLET PO PRN ×3 (00:16→09:05)
[2017-03-04] MEDS: ACETAMINOPHEN 325 MG TABLET (FP) PO PRN ×3 (00:17→09:06)
[2017-03-04 08:27] VITALS: BP 138/80; PULSE 92; TEMP 98.5
[2017-03-04 08:32] LABS: MCH 28.8 pg (25.7-33.7); MCHC 31.9 g/dl (32.0-36.0); MEAN CELL VOLUME 90.3 fl (80-96); MEAN PLT VOLUME 8.4 fl (7.5-11.1); PLATELET COUNT 247 K/MM3 (134-434); RDW 21.6 % (11.6-15.6); WHITE BLOOD COUNT 6.6 K/mm3 (4.0-10.0)
[2017-03-04] MEDS: PANTOPRAZOLE 40 MG TABLET (FP) PO SCH (09:05)
[2017-03-04] MEDS: NICOTINE 21 MG/24 HOURS TOPICAL PATCH TD SCH (09:06)
[2017-03-06 00:10] LABS: HEP B SURFACE AB Non Reactive (.)
[2017-03-06 10:57] LABS: COMMENT-- SEE FILE COPY; INTERPRETATION SEE FILE COPY; LIMITATIONS. SEE FILE COPY
== END 2017-03-04 13:18 | disposition home or self-care (01) | DRG 811 ==
LOC: JER 12:39 → JERBED 13:44 → J6S 16:50 → OBSVTOIN 03-02 17:19
PROVIDERS: ADMIT Family Medicine; ATTEND Family Medicine
PROC: 30233N1 Transfusion of Nonautologous Red Blood Cells into Peripheral Vein, Percutaneous Approach (ICD-10-PCS; 2017-02-28)
PROC: 0W3P8ZZ Control Bleeding in Gastrointestinal Tract, Via Natural or Artificial Opening Endoscopic (ICD-10-PCS; 2017-03-02)
PROC: 0DB68ZX Excision of Stomach, Via Natural or Artificial Opening Endoscopic, Diagnostic (ICD-10-PCS; principal; 2017-03-02 15:00)
DX: D62 Acute posthemorrhagic anemia (principal); K55.21 Angiodysplasia of colon with hemorrhage; K25.9 Gastric ulcer, unspecified as acute or chronic, without hemorrhage or perforation; Z98.84 Bariatric surgery status; F17.210 Nicotine dependence, cigarettes, uncomplicated; R53.83 Other fatigue; J44.9 Chronic obstructive pulmonary disease, unspecified; E66.01 Morbid (severe) obesity due to excess calories; F51.04 Psychophysiologic insomnia
CPT/HCPCS: 36415; 36430; 71010-TC; 74177-TC; 80053; 80076; 81003; 81015; 82172; 82247; 82272; 82465; 82607; 82728; 82746; 82947; 82977; 83010; 83516; 83540; 83883; 84450; 84460; 84478; 84703; 85025; 85027; 85044; 86038; 86704; 86706; 86708; 86850; 86900; 86901; 86922; 87340; 88305-TC; 88342-TC; 93005; 93010; 99283-25; G0378; P9038; P9058

== ENCOUNTER 2017-04-10 09:33 | Day surgery (SDC) | payer BC ==
[2017-04-09 11:45] VITALS: BMI 37.1
[2017-04-10] MEDS ORDERED: LIDOCAINE HCL 1%, 10 MG/ML (20ML VIAL) ONE (10:59)
[2017-04-10] MEDS ORDERED: MIDAZOLAM HCL 2 MG/2 ML SINGLE DOSE VIAL ONE ×2 (11:18→11:28)
[2017-04-10] MEDS ORDERED: ceFAZolin SODIUM 1 GM VIAL IVPB ONE (11:42)
[2017-04-10] MEDS ORDERED: LIDOCAINE HCL 1%, 10 MG/ML (20ML VIAL) IJ ONE ×2 (11:49→11:50)
[2017-04-10] MEDS ORDERED: BACITRACIN 30 GM TUBE TOPICAL OINTMENT TP ONE (12:06)
[2017-04-10] MEDS ORDERED: KETOROLAC TROMETHAMINE 30 MG/1 ML VIAL ONE (12:10)
[2017-04-10] MEDS ORDERED: ACETAMINOPHEN 325 MG TABLET (FP) PO PRN (12:26)
[2017-04-10] MEDS ORDERED: ACETAMINOPHEN 1000 MG/100 ML VIAL (NON FORMULARY) IVPB ONE ×2 (12:40→13:15)
[2017-04-10] MEDS ORDERED: ACETAMINOPHEN INJECTION 100 ML IVPB ONE (12:43)
[2017-04-10] MEDS ORDERED: ALBUTEROL SO4 0.083% IH SOL 2.5 MG/3 ML VIAL.NEB. NEB PRN (12:49)
[2017-04-10] MEDS ORDERED: LACTATED RINGERS SOLUTION 1,000 ML IV SCH (13:00)
[2017-04-10] MEDS ORDERED: oxyCODONE HCL 5 MG TABLET PO ONE (13:03)
[2017-04-10 13:10] VITALS: TEMP 98.1
[2017-04-10] MEDS ORDERED: oxyCODONE HCL 5 MG TABLET ONE (13:57)
[2017-04-10 14:52] VITALS: BP 146/80; PULSE 90
[2017-04-10] MEDS ORDERED: AMOX TR/POT CLAV 875MG/125MG TABLETS (FP) PO SCH (22:00)
[2017-04-10] MEDS ORDERED: traZODone HCL 50 MG TABLET (FP) PO SCH (22:00)
--- NOTE | 2017-04-11 09:31 | OP ---
DATE OF OPERATION: 04/10/2017 PREOPERATIVE DIAGNOSIS: Right breast mammary fistula. POSTOPERATIVE DIAGNOSIS: Right breast mammary fistula. PROCEDURE: Excision of right breast mass and fistula. SURGEON: Miley Lewis MD ANESTHESIA: General. ESTIMATED BLOOD LOSS: Minimal. COMPLICATIONS: None. The patient had an excision of an infected mass in the inner retroareolar area of the right breast and then 2 months postop developed a fistula at the areolar border in the right 3 o'clock location. My recommendation was an excision of the entire fistula to the nipple dermis. The procedure was discussed with her and all the questions answered. PROCEDURE IN DETAIL: The patient was brought to [facility] and taken into the operating room. After induction of general anesthesia and IV antibiotics, the right breast was prepped in the usual sterile fashion. The area in the inner right breast was anesthetized with 1% lidocaine. A number 1 lacrimal duct probe was used to probe the fistula that was at the areolar border to see the extent of this and to follow the tract to make sure this was excised including an ellipse of nipple. An ellipse of skin was taken to include the prior incision and this entire area was excised en bloc around the probe down to dermis of nipple. This was sent as a right breast excisional mass to Pathology in formalin. Hemostasis was assured with electrocautery. The parenchyma approximated with interrupted 2-0 Vicryl. Skin approximated with interrupted 3-0 Vicryl and a running 4-0 Prolene and a sterile dressing with bacitracin and Tegaderm was applied. She tolerated the procedure well, was extubated on the operating room table, and taken to recovery in good condition. Haim [id number] MTDD
[2017-04-11] MEDS ORDERED: MULTIVITAMINS THER W-MINERALS COMBO TABLET (FP) PO SCH (10:00)
[2017-04-11] MEDS ORDERED: PANTOPRAZOLE 40 MG TABLET (FP) PO SCH (10:00)
[2017-04-11] MEDS ORDERED: FERROUS SO4 325 MG TABLET (FP) PO SCH (10:00)
--- NOTE | 2017-04-13 11:22 | PATH ---
Surgical Pathology Report Patient Name: MARS TOMLIN [facility]. Rec. #: [id number] /Age/Gender: 1965 (Age: 51) / F Account: [id number] Location: [facility] Taken: 04/10/2017 Received: 04/10/2017 Reported: 04/13/2017 Physicians: Miley Lewis M.D. Specimen(s) Received RIGHT BREAST EXCISION OF MASS Clinical History Probably benign Final Diagnosis BREAST, RIGHT, MASS, EXCISION: BENIGN BREAST TISSUE WITH MARKED ACTIVE AND CHRONIC INFLAMMATION, INFLAMED GRANULATION TISSUE AND FOREIGN BODY TYPE MULTINUCLEATED GIANT CELL REACTION AROUND BENIGN EPIDERMAL LINING (SEE COMMENT). SURROUNDING FIBROCYSTIC CHANGE WITH FOCAL USUAL AND PAPILLARY DUCTAL HYPERPLASIA, BACK DILATATION, CYST FORMATION AND STROMAL FIBROSIS. Comment: Prior excision showing skin abscess and mastitis is noted ([id number]). The histologic findings in the current specimen may represent an abscess with a fistula tract or a ruptured epidermal inclusion cyst with abscess formation. Clinical correlations are suggested. Electronically Signed Tu Spain M.D. Gross Description Received in formalin labeled "right breast excision of mass" is a 4.3 x 4.3 x 2.1 cm irregular, unoriented portion of fibroadipose tissue. There is no needle localization wire present. The anterior surface displays a 2.8 x 0.7 cm guaman, elliptical portion of skin. The specimen is inked blue and serially sectioned. Sectioning reveals a focus of hemorrhage, consistent with a previous biopsy site. The previous biopsy site is surrounded by abundant firm fibrous tissue. No definitive mass is identified. Web Programmer sections are sequentially submitted in 11 cassettes. Time to fixation: not indicated Total formalin fixation time: approximately 6h /04/10/201704/10/2017
== END 2017-04-10 14:52 | disposition home or self-care (01) ==
LOC: JASU-SURG 09:33
PROVIDERS: ATTEND Surgery
PROC: 0HBT0ZX Excision of Right Breast, Open Approach, Diagnostic (ICD-10-PCS; principal; 2017-04-10 11:00)
DX: D24.1 Benign neoplasm of right breast (principal); N61.0 Mastitis without abscess; N60.11 Diffuse cystic mastopathy of right breast; N60.01 Solitary cyst of right breast
CPT/HCPCS: 88305-TC; 94760

== ENCOUNTER 2017-04-16 23:44 | Day surgery (SDC) | payer BC ==
[2017-04-17 00:21] VITALS: BMI 33.9
[2017-04-17] MEDS ORDERED: OXYCODONE/APAP 5/325MG COMBO TABLET PO ONE ×2 (01:16→05:33)
[2017-04-17] MEDS ORDERED: AMOX TR/POT CLAV 875MG/125MG TABLETS (FP) PO STA (01:16)
--- NOTE | 2017-04-17 01:16 | PDOC ---
History of Present Illness - General History Source: Patient Exam Limitations: No Limitations - History of Present Illness Initial Comments: 04/17/17 01:31 The patient is a 51 year old female, with a significant past medical history of right breast mass removal, anemia, and Gastric Bypass(2007), who presents to the emergency department s/p mechanical fall earlier this evening. The patient reports she was walking when she tripped and fell on the sidewalk, landing on her right breast. Patient reports she recently had a suture closed s/p removal of right breast mass on 04/10/17. The patient reports the site of the wound is open s/p fall. She denies any bleeding or pain at the site of the wound. She denies any fever, chills, or dizziness. She denies any nausea or vomiting. She denies any chest pain, shortness of breath, diaphoresis, or palpitations. Allergies: Bupropion HCl Past Surgical History: Right breast mass removal (04/10/17), Gastric Bypass (2007 ), Cholecystectomy Social History: Current everyday smoker. No ETOH or drug use. Surgeon: Dr. Rose <Claudia Israel - Last Filed: 04/17/17 01:58> - General History Source: Patient <Aly Nielsen - Last Filed: 04/17/17 05:42> <Karan De - Last Filed: 04/17/17 07:20> - General Chief Complaint: Injury Stated Complaint: INJURY Time Seen by Provider: 04/17/17 01:15 Past History <Claudia Israel - Last Filed: 04/17/17 01:58> - Past Medical History Anemia: Yes (LOW BLOOD IRON.) Asthma: No Cancer: No Cardiac Disorders: No CVA: No COPD: No CHF: No Dementia: No Diabetes: No GI Disorders: Yes (gastric bypass 2007) Disorders: No HTN: No Hypercholesterolemia: No Liver Disease: No Seizures: No Thyroid Disease: No Other medical history: right breast mass removal - Surgical History Abdominal Surgery: Yes (GASTRIC BYPASS 2007) Appendectomy: No Cardiac Surgery: No Cholecystectomy: Yes Lung Surgery: No Neurologic Surgery: No Orthopedic Surgery: No - Immunization History Immunization Up to Date: Yes - Psycho/Social/Smoking Cessation Hx Anxiety: No Suicidal Ideation: No Smoking History: Current every day smoker Have you smoked in the past 12 months: Yes Number of Cigarettes Smoked Daily: 20 Information on smoking cessation initiated: No 'Breaking Loose' booklet given: 02/28/17 Hx Alcohol Use: No Drug/Substance Use Hx: No Substance Use Type: None Hx Substance Use Treatment: No <GiaAly - Last Filed: 04/17/17 05:42> <Karan De - Last Filed: 04/17/17 07:20> - Past Medical History Allergies/Adverse Reactions: Allergies Allergy/AdvReac Type Severity Reaction Status Date / Time bupropion HCl Allergy Intermediate Rash Verified 04/17/17 00:20 [From Wellbutrin] Home Medications: Ambulatory Orders Multivit with Iron-Minerals [Compete] 1 each PO DAILY 12/04/16 Pantoprazole Sodium 40 mg PO DAILY 02/28/17 Acetaminophen [Tylenol .Regular Strength -] 325 mg PO Q4H PRN #0 tablet Trazodone HCl [Desyrel -] 150 mg PO HS tablet 03/03/17 Ferrous Sulfate [Feosol] 325 mg PO DAILY 04/09/17 Amoxicillin/Potassium Clav [Augmentin 875-125 Tablet] 1 each PO BID 04/10/17 Oxycodone HCl/Acetaminophen [Percocet 5-325 mg Tablet] 1 - 2 tab PO Q6H PRN #30 tab MDD 8 pills 04/10/17 Review of Systems - Review of Systems Able to Perform ROS?: Yes Comments:: 04/17/17 01:32 CONSTITUTIONAL: Absent: fever, no chills, no fatigue EYES: Absent: visual changes ENT: Absent: ear pain, no sore throat CARDIOVASCULAR: Absent: chest pain, no palpitations RESPIRATORY: Absent: cough, no SOB GI: Absent: abdominal pain, no nausea, no vomiting, no constipation, no diarrhea GENITOURINARY: Absent: dysuria, no frequency, no hematuria MUSCULOSKELETAL: Absent: back pain, no arthralgia, no myalgia SKIN: Present: +Open wound at the right breast s/p right breast mass removal Absent: rash NEURO: Absent: headache <IsraelClaudia cruz - Last Filed: 04/17/17 01:58> *Physical Exam - Vital Signs Last Vital Signs Temp Pulse Resp BP Pulse Ox 97.7 F 82 20 136/79 99 04/17/17 00:20 06/16/17 00:20 04/17/17 00:20 04/17/17 00:20 04/17/17 00:20 - Physical Exam Comments: 04/17/17 01:32 GENERAL: Well-appearing, well-nourished. No apparent distress. HEENT: Normocephalic, atraumatic. PERRL, EOM intact. CARDIOVASCULAR: Normal S1, S2. Regular rate and rhythm. PULMONARY: Clear to auscultation bilaterally. BREAST: Open wound to the posterior aspect of the right breast. Wound is nontender, not actively bleeding, and with no exudates ABDOMEN: Soft, non-distended, non-tender. EXTREMITIES: Normal ROM in all four extremities. No gross deformities. SKIN: Warm, dry. No rash NEUROLOGICAL: No focal neurological deficits. <Claudia Israel - Last Filed: 04/17/17 01:58> - Vital Signs Last Vital Signs Temp Pulse Resp BP Pulse Ox 97.7 F 82 20 136/79 99 04/17/17 00:20 04/17/17 00:20 04/17/17 00:20 04/17/17 00:20 04/17/17 00:20 <Aly Nielsen - Last Filed: 04/17/17 05:42> - Vital Signs Last Vital Signs Temp Pulse Resp BP Pulse Ox 97.7 F 92 H 18 143/85 96 04/17/17 00:20 04/17/17 05:53 04/17/17 05:53 04/17/17 05:53 04/17/17 05:53 <Karan De - Last Filed: 04/17/17 07:20> ED Treatment Course - Medications Given in the ED: ED Medications Discontinued Medications Generic Name Dose Route Start Last Admin Trade Name Freq PRN Reason Stop Dose Admin Oxycodone/Acetaminophen 1 combo 04/17/17 01:16 04/17/17 01:21 Percocet 5/325 - PO 04/17/17 01:17 1 combo ONCE ONE Administration <Claudia Israel - Last Filed: 04/17/17 01:58> - Medications Given in the ED: ED Medications Discontinued Medications Generic Name Dose Route Start Last Admin Trade Name Freq PRN Reason Stop Dose Admin Amoxicillin/Clavulanate Potassium 1 tab 04/17/17 01:16 04/17/17 02:14 Augmentin - 875mg Tablet PO 04/17/17 01:17 1 tab ONCE STA Administration Ondansetron HCl 4 mg 04/17/17 05:57 04/17/17 05:57 Zofran Odt - SL 04/17/17 05:58 4 mg NOW ONE Administration Oxycodone/Acetaminophen 1 combo 04/17/17 01:16 04/17/17 01:21 Percocet 5/325 - PO 04/17/17 01:17 1 combo ONCE ONE Administration Oxycodone/Acetaminophen 1 combo 04/17/17 05:33 04/17/17 05:39 Percocet 5/325 - PO 04/17/17 05:34 1 combo ONCE ONE Administration <Karan De - Last Filed: 04/17/17 07:20> Medical Decision Making - Medical Decision Making 04/17/17 01:23 First call placed to Dr. Lewis at 01:23. Awaiting call back. Second call placed to Dr. Rose at 01:58. Awaiting call back. <Claudia Israel - Last Filed: 04/17/17 01:58> - Medical Decision Making 04/17/17 05:[address] Rose. Will take pt to OR to close wound. Dr. Nielsen: The scribe's documentation has been prepared under my direction and personally reviewed by me in its entirery. I confirm that the note above accurately reflects all work, treatment, procedures, and medical decision making performed by me. <Aly Nielsen - Last Filed: 04/17/17 05:42> *DC/Admit/Observation/Transfer - Attestations Scribe Attestion: 04/17/17 01:32 Documentation prepared by Claudia Israel, acting as medical social worker for Aly Nielsen DO. <Claudia Israel - Last Filed: 04/17/17 01:58> <Aly Nielsen - Last Filed: 04/17/17 05:42> - Discharge Dispostion Admit: Yes <Karan De - Last Filed: 04/17/17 07:20> Diagnosis at time of Disposition: Wound of right breast Qualifiers: Encounter type: initial encounter Qualified Code(s): S21.001A - Unspecified open wound of right breast, initial encounter - Discharge Dispostion Condition at time of disposition: Stable - Referrals Referrals: Crystal Meyer MD [Primary Care Provider] -
[2017-04-17] MEDS ORDERED: OXYCODONE/APAP 5/325MG COMBO TABLET ONE ×2 (01:19→05:36)
[2017-04-17] MEDS ORDERED: ONDANSETRON *ODT* 4 MG TABLET ONE (05:38)
[2017-04-17] MEDS ORDERED: ONDANSETRON *ODT* 4 MG TABLET SL ONE (05:57)
[2017-04-17] MEDS ORDERED: SUCCINYLCHOLINE CHLORIDE 200 MG/10 ML VIAL ONE (07:32)
[2017-04-17] MEDS ORDERED: ROCURONIUM BROMIDE 50 MG/5 ML VIAL ONE (07:32)
[2017-04-17] MEDS ORDERED: ePHEDrine SULFATE 50 MG/1 ML AMPULE ONE (07:32)
[2017-04-17] MEDS ORDERED: MIDAZOLAM HCL 2 MG/2 ML SINGLE DOSE VIAL ONE (07:32)
[2017-04-17] MEDS ORDERED: PHENYLEPHRINE HCL 10 MG/1 ML SINGLE DOSE VIAL ONE (07:32)
[2017-04-17] MEDS ORDERED: PROPOFOL 20 ML ONE ×4 (07:34→08:25)
[2017-04-17] MEDS ORDERED: ALBUTEROL SO4 6.7 GM HFA INHALER IH ONE (08:09)
[2017-04-17] MEDS ORDERED: ceFAZolin SODIUM 1 GM VIAL IVPB ONE (08:20)
[2017-04-17] MEDS ORDERED: BACITRACIN 15 GM TUBE TOPICAL OINTMENT ONE (08:31)
--- NOTE | 2017-04-17 08:55 | CONSULT ---
Consult - text type - Consultation Consultation Note: Patient well know to me s/p excision of a R lactiferous duct fistula one week postop where the stitch was removed by me yesterday and had a fall at night that caused the incision to open up. She presented to the ER. Afebrile, VSS R breast- inner incision open with some parenchymal sutures in place, no cellulitis. Plan: closure of R breast wound in the operating room.
[2017-04-17] MEDS ORDERED: ACETAMINOPHEN INJECTION 100 ML IVPB ONE (08:58)
[2017-04-17] MEDS ORDERED: LACTATED RINGERS SOLUTION 1,000 ML IV SCH (09:15)
[2017-04-17 09:43] VITALS: TEMP 98
--- NOTE | 2017-04-17 10:13 | OP ---
DATE OF OPERATION: 04/17/2017 PREOPERATIVE DIAGNOSIS: Open right breast wound. POSTOPERATIVE DIAGNOSIS: Open right breast wound. PROCEDURE: Closure of right breast wound. SURGEON: Miley Lewis MD ANESTHESIA: General. ESTIMATED BLOOD LOSS: Minimal. COMPLICATIONS: None. DISPOSITION: Stable at the end of procedure. INDICATIONS FOR PROCEDURE: Patient had an excision of a lactiferous duct fistula a week ago and had a fall overnight where she felt a wound to pop open. She presented to the emergency room at [facility] where a sterile dressing was placed over the wound, and when I saw her, she had a completely open including the inside, in the inside parenchyma. Therefore, my recommendation was, since it has only been a few hours, it was of worth trying to clean it out and put a repair back together. This was explained to her and she understood. PROCEDURE IN DETAIL: Patient was taken into the operating room at [facility] in [place], and after induction of general anesthesia and IV antibiotics, the right breast was prepped and draped in the usual sterile fashion. The prior incision was already opened with the parenchyma exposed, as well. I irrigated with a liter antibiotic solution and once that was completed, the parenchyma was approximated with interrupted 2-0 Vicryl, skin approximated with interrupted 3-0 Vicryl and interrupted 4-0 nylons. Bacitracin was applied to the wound, and this was covered with a small Tegaderm and a 4 x 4 and paper tape. She tolerated the procedure well, extubated on the operating room table, taken to recovery in good condition. Haim [id number]
[2017-04-17] MEDS ORDERED: oxyCODONE HCL 5 MG TABLET ONE (10:39)
[2017-04-17] MEDS ORDERED: oxyCODONE HCL 5 MG TABLET PO PRN (10:56)
[2017-04-17] MEDS ORDERED: ACETAMINOPHEN 1000 MG/100 ML VIAL (NON FORMULARY) IVPB ONE (11:30)
[2017-04-17 13:20] VITALS: BP 125/71; PULSE 82
== END 2017-04-17 12:15 | disposition home or self-care (01) ==
LOC: JER 23:44 → JASUSAT 04-17 07:20
PROVIDERS: ATTEND Surgery
PROC: 0HQTXZZ (ICD-10-PCS; principal; 2017-04-17 07:45)
DX: S21.001A Unspecified open wound of right breast, initial encounter (principal); W19.XXXA Unspecified fall, initial encounter; Y93.9 Activity, unspecified; Y92.9 Unspecified place or not applicable
CPT/HCPCS: 94760; 99282-25